=== PATIENT | male | born 1960 | race Caucasian/White ===

== ENCOUNTER → 2019-09-13 17:13 | Outpatient (BNVA) | payer BC, SELFPAY | PROVIDERS: Family Provider Nurse Practitioner; PCP Nurse Practitioner; Visit Provider Nurse Practitioner | DX: E11.65 Type 2 diabetes mellitus with hyperglycemia (principal); I10 Essential (primary) hypertension | CPT/HCPCS: 80053; 83036 ==

== ENCOUNTER → 2019-12-06 00:01 | Outpatient (BNVA) | payer BC, SELFPAY | PROVIDERS: Family Provider Nurse Practitioner; PCP Nurse Practitioner; Visit Provider Podiatrist Foot & Ankle Surgery | DX: M21.42 Flat foot [pes planus] (acquired), left foot (principal); M21.41 Flat foot [pes planus] (acquired), right foot | CPT/HCPCS: 73630 ==

== ENCOUNTER 2020-05-28 20:00 | Outpatient (CLI) | payer BC, SELFPAY | END 2020-05-28 20:01 | disposition home or self-care (01) | LOC: SLEEP 05-29 09:27 | PROVIDERS: Family Provider Nurse Practitioner; PCP Nurse Practitioner | DX: G47.33 Obstructive sleep apnea (adult) (pediatric) (principal) | CPT/HCPCS: 95811 ==

== ENCOUNTER → 2021-01-08 10:08 | Outpatient (BNVA) | payer OTHER, SELFPAY | PROVIDERS: Family Provider Nurse Practitioner; PCP Family Medicine; Referring Provider Family Medicine; Visit Provider Urology | DX: N39.9 Disorder of urinary system, unspecified (principal); R39.9 Unspecified symptoms and signs involving the genitourinary system; N52.9 Male erectile dysfunction, unspecified | CPT/HCPCS: 81003 ==

== ENCOUNTER 2021-05-04 12:33 | Outpatient (CLI) | payer OTHER, SELFPAY ==
[2021-05-04 12:40] VITALS: BMI 20.1
[2021-05-04 12:48] VITALS: BP 138/80; PULSE 80; RESP 16; TEMP 36.8; O2SAT 97
[2021-05-04 13:33] VITALS: BP 157/89; PULSE 79; RESP 16; TEMP 36.8; O2SAT 96
[2021-05-04 14:28] VITALS: BP 142/85; PULSE 76; RESP 16; TEMP 36.8; O2SAT 94
== END 2021-05-04 14:30 | disposition home or self-care (01) ==
LOC: OPS 12:37
PROVIDERS: PCP Family Medicine; Visit Provider Family Medicine
DX: U07.1 COVID-19 (principal)
CPT/HCPCS: 96365

== ENCOUNTER → 2025-03-21 10:39 | Outpatient (BNVA) | payer MEDICARE, OTHER, BC, SELFPAY | PROVIDERS: PCP Family Medicine; Visit Provider Specialist | DX: G44.209 Tension-type headache, unspecified, not intractable (principal); Z98.1 Arthrodesis status; M54.12 Radiculopathy, cervical region; M54.2 Cervicalgia; G62.89 Other specified polyneuropathies; E11.40 Type 2 diabetes mellitus with diabetic neuropathy, unspecified | CPT/HCPCS: 99214 ==